=== PATIENT | female | born 1960 | race Caucasian/White ===

== ENCOUNTER → 2017-08-19 | Outpatient (CLI) | payer BC | LOC: M RAD 09:43 | DX: M43.16 Spondylolisthesis, lumbar region (principal); M47.816 Spondylosis without myelopathy or radiculopathy, lumbar region | CPT/HCPCS: 72110 ==

== ENCOUNTER 2017-08-25 12:51 | Outpatient (RCR) | payer BC | END 2017-09-03 | LOC: M PT 12:51 | DX: Z51.89 Encounter for other specified aftercare (principal); M51.36 Other intervertebral disc degeneration, lumbar region ==

== ENCOUNTER 2017-09-07 15:57 | Outpatient (RCR) | payer BC | END 2017-10-03 | LOC: M PT 15:57 | DX: Z51.89 Encounter for other specified aftercare (principal); M51.36 Other intervertebral disc degeneration, lumbar region | CPT/HCPCS: 97010 ==

== ENCOUNTER → 2017-10-03 | Outpatient (CLI) | payer BC | LOC: M RAD 12:08 | DX: M51.36 Other intervertebral disc degeneration, lumbar region (principal); M71.38 Other bursal cyst, other site | CPT/HCPCS: 72148 ==

== ENCOUNTER 2017-10-06 16:31 | Outpatient (RCR) | payer BC | END 2017-11-03 | LOC: M PT 16:31 | DX: Z51.89 Encounter for other specified aftercare (principal); M51.36 Other intervertebral disc degeneration, lumbar region ==

== ENCOUNTER 2017-11-05 15:07 | Outpatient (RCR) | payer BC | END 2017-12-04 | LOC: M PT 15:07 | DX: Z51.89 Encounter for other specified aftercare (principal); M47.816 Spondylosis without myelopathy or radiculopathy, lumbar region; M51.36 Other intervertebral disc degeneration, lumbar region | CPT/HCPCS: 97010 ==

== ENCOUNTER 2017-12-09 16:00 | Outpatient (RCR) | payer BC | END 2018-01-03 | LOC: M PT 16:00 | DX: Z51.89 Encounter for other specified aftercare (principal); M51.36 Other intervertebral disc degeneration, lumbar region; M47.816 Spondylosis without myelopathy or radiculopathy, lumbar region | CPT/HCPCS: 97010 ==

== ENCOUNTER 2018-01-05 08:39 | Outpatient (RCR) | payer BC | END 2018-02-03 | LOC: M PT 08:39 | DX: M51.36 Other intervertebral disc degeneration, lumbar region (principal); M47.816 Spondylosis without myelopathy or radiculopathy, lumbar region ==

== ENCOUNTER → 2018-02-03 | Outpatient (REF) | payer BC ==
[2018-02-04 13:20] LABS: APPEARANCE, URINE CLEAR (CLEAR); BACTERIA, URINE AUTO NEGATIVE (NEGATIVE); BILIRUBIN, URINE AUTO NEGATIVE (NEGATIVE); BLOOD, URINE BLOOD NEGATIVE (NEGATIVE); COLOR, URINE YELLOW (YELLOW); GLUCOSE, URINE (UA) AUTO NEGATIVE (NEGATIVE); KETONE, URINE AUTO NEGATIVE (NEGATIVE); LEUKOCYTE ESTERASE, URINE AUTO NEGATIVE (NEGATIVE); MUCUS, URINE SMALL (NEGATIVE); NITRITE, URINE AUTO NEGATIVE (NEGATIVE); PROTEIN, URINE AUTO NEGATIVE (NEGATIVE); RBC, URINE AUTO 1 /HPF (0-3); SPECIFIC GRAVITY URINE AUTO 1.009 (1.002-1.035); SQUAMOUS EPITHELIAL CELL UR AU 0 /HPF (0-6); UROBILINOGEN, URINE AUTO 0.2 mg/dL (0.0-2.0); WBC, URINE AUTO 0 /HPF (0-3)
== END ==
LOC: M LAB REF 11:50
DX: Z01.818 Encounter for other preprocedural examination (principal)
CPT/HCPCS: 81001

== ENCOUNTER 2018-02-04 08:40 | Outpatient (RCR) | payer BC | END 2018-03-05 | LOC: M PT 08:40 | DX: M51.36 Other intervertebral disc degeneration, lumbar region (principal); M47.816 Spondylosis without myelopathy or radiculopathy, lumbar region ==

== ENCOUNTER 2018-03-18 13:11 | Outpatient (RCR) | payer BC | END 2018-04-05 | LOC: M PT 13:11 | PROVIDERS: ATTEND Nurse Practitioner Family | DX: M54.5 Low back pain (principal) ==

== ENCOUNTER 2018-05-03 14:30 | Outpatient (RCR) | payer BC | END 2018-05-06 | LOC: M PT 14:30 | PROVIDERS: ATTEND Nurse Practitioner Family | DX: M54.5 Low back pain (principal) ==

== ENCOUNTER 2018-06-02 14:30 | Outpatient (RCR) | payer BC | END 2018-06-03 | LOC: M PT 14:30 | PROVIDERS: ATTEND Nurse Practitioner Family | DX: M54.5 Low back pain (principal) ==

== ENCOUNTER 2018-06-04 15:29 | Outpatient (RCR) | payer BC | END 2018-07-04 | LOC: M PT 15:29 | PROVIDERS: ATTEND Nurse Practitioner Family | DX: M96.1 Postlaminectomy syndrome, not elsewhere classified (principal) ==

== ENCOUNTER → 2018-07-19 | Outpatient (REF) | payer BC | LOC: M LAB REF 12:04 | PROVIDERS: ATTEND Internal Medicine | DX: Z01.89 Encounter for other specified special examinations (principal) ==

== ENCOUNTER 2018-11-26 08:21 | Day surgery (SDC) | payer BC ==
[~2018-11-26] VITALS: Ht 162.6 cm; Wt 90.7 kg
[~2018-11-26 08:21] MED LIST: D3400CAP PO; FISH1000 PO; HYDR12.55 PO; LOSA25TA14 PO; NS 1,000 ML IV ONE; SYNT100T PO; VITA500C19 PO
--- NOTE | 2018-11-26 09:34 | ROOR ---
Patient Name: Yvonne Ford Procedure Date: 11/26/2018 9:01 AM Date of : 1960 Age: 58 Room: [facility] Gender: Female Note Status: Finalized Procedure: Total Colonoscopy to Cecum + Cold Snare + Biopsy Polypectomy Indications: High risk colon cancer surveillance: Personal history of colonic polyps, Last colonoscopy: 2014 Providers: Sixto Yap MD Referring MD: Lavern Knight NP Requesting Provider: Medicines: Monitored Anesthesia Care Complications: No immediate complications. Procedure: Pre-Anesthesia Assessment: - The heart rate, respiratory rate, oxygen saturations, blood pressure, adequacy of pulmonary ventilation, and response to care were monitored throughout the procedure. The Colonoscope was introduced through the anus and advanced to the cecum, identified by appendiceal orifice and ileocecal valve. The colonoscopy was performed without difficulty. The patient tolerated the procedure well. The quality of the bowel preparation was good. Findings: The perianal and digital rectal examinations were normal. Non-bleeding internal hemorrhoids were found during retroflexion. The hemorrhoids were small and Grade I (internal hemorrhoids that do not prolapse). Multiple small and large-mouthed diverticula were found in the recto-sigmoid colon, sigmoid colon and descending colon. Multiple sessile polyps were found in the ascending colon. The polyps were small in size. These polyps were removed with a cold snare. Resection and retrieval were complete. Multiple sessile polyps were found at 50 cm proximal to the anus. The polyps were small in size. These polyps were removed with a jumbo cold forceps. Resection and retrieval were complete. The exam was otherwise without abnormality on direct and retroflexion views. Impression: - Non-bleeding internal hemorrhoids. - Diverticulosis in the recto-sigmoid colon, in the sigmoid colon and in the descending colon. - Multiple small polyps in the ascending colon, removed with a cold snare. Resected and retrieved. - Multiple small polyps at 50 cm proximal to the anus, removed with a jumbo cold forceps. Resected and retrieved. - The examination was otherwise normal on direct and retroflexion views. - The exam was otherwise normal to the cecum. Recommendation: - Patient has a contact number available for emergencies. The signs and symptoms of potential delayed complications were discussed with the patient. Return to normal activities tomorrow. Written discharge instructions were provided to the patient. - High fiber diet. - Discharge patient to home. - Continue present medications. - Await pathology results. - Telephone GI clinic for pathology results in 1 week. - Repeat colonoscopy in 5 years for surveillance based on pathology results. - Return to referring physician. - The findings and recommendations were discussed with the patient's family. Sixto Yap MD Sixto Yap MD 11/26/2018 9:33:58 AM Electronically signed by Sixto Yap MD Number of Addenda: 0 Note Initiated On: 11/26/2018 9:01 AM Estimated Blood Loss: Estimated blood loss: none.
[2018-11-26 09:42] VITALS: BP 135/84
[2018-11-26] MEDS ORDERED: LIDOCAINE 2% INJ 100 MG/5 ML SDV (FOR ANES.) As Ordered ONE (10:33)
[2018-11-26] MEDS ORDERED: PROPOFOL 500 MG/50 ML VIAL As Ordered ONE (10:33)
== END 2018-11-26 10:12 | disposition home or self-care (01) ==
LOC: M OPP 08:21
PROVIDERS: ATTEND Internal Medicine Gastroenterology
DX: Z12.11 Encounter for screening for malignant neoplasm of colon (principal); Z86.010 Personal history of colon polyps; K64.0 First degree hemorrhoids; K63.5 Polyp of colon; K57.30 Diverticulosis of large intestine without perforation or abscess without bleeding; Z79.899 Other long term (current) drug therapy; Z88.8 Allergy status to other drugs, medicaments and biological substances; Z91.018 Allergy to other foods

== ENCOUNTER → 2019-03-10 | Outpatient (CLI) | payer BC ==
[~2019-03-10] MED LIST changes: -NS 1,000 ML IV ONE
--- NOTE | 2019-03-10 08:23 | REP ---
Clinical: Screening for abdominal aortic aneurysm. Technique: Real time norris scale ultrasound examination using curved array transducer. Findings: Abdominal aorta demonstrates very minimal atheromatous plaquing without evidence for aneurysm. No periaortic fluid collections are identified. Proximal aorta 2.1 x 2.3 cm. Mid aorta (renal artery level) 2.0 x 2.0 cm. Mid aorta 1.7 x 1.9 cm. Distal aorta 1.7 x 1.8 cm. Right common iliac artery 1.0 cm maximal diameter. Left common iliac artery 1.1 cm maximal diameter. Impression: No evidence for abdominal aortic aneurysm. Electronically Signed by Kirt Mcneill MD 03/10/2019 08:15 A
== END ==
LOC: M RAD 07:09
PROVIDERS: ATTEND Nurse Practitioner Adult Health
DX: I71.4 Abdominal aortic aneurysm, without rupture (principal)

== ENCOUNTER → 2019-05-23 | Outpatient (CLI) | payer BC ==
[2019-05-23 16:11] LABS: BILIRUBIN,DIRECT 0.1 MG/DL (0.0-0.2); BILIRUBIN,TOTAL 0.3 MG/DL (0.2-1.0)
== END ==
LOC: M LAB 15:04
PROVIDERS: ATTEND Dermatology
DX: B35.1 Tinea unguium (principal)

== ENCOUNTER → 2020-09-07 | Outpatient (REF) | payer BC | LOC: M LAB REF 18:06 | PROVIDERS: ATTEND Dermatology | DX: L85.9 Epidermal thickening, unspecified (principal) ==

== ENCOUNTER → 2021-12-23 | Outpatient (REF) ==
[~2021-12-23] MED LIST changes: +LOSA25TA13 PO; -LOSA25TA14 PO
== END ==
LOC: M EMP 10:58
PROVIDERS: ATTEND Family Medicine
DX: Z20.828 Contact with and (suspected) exposure to other viral communicable diseases (principal); Z11.59 Encounter for screening for other viral diseases

== ENCOUNTER → 2022-08-29 | Outpatient (REF) | LOC: M EMP 11:26 | PROVIDERS: ATTEND Family Medicine | DX: Z11.52 Encounter for screening for COVID-19 (principal) ==